=== PATIENT | male | born 1970 | race Caucasian/White ===

== ENCOUNTER → 2017-10-23 | Outpatient (CLI) | payer BC ==
[~2017-10-23] VITALS: Ht 177.8 cm; Wt 127.0 kg
[~2017-10-23] MED LIST: ACYCLOVIR200 MG PO; ADVIL,NUPRIN,M200 MG PO; ASCORBIC ACID500 M3 PO; BENTYL10 MG PO; BUTALB-CAFF-AC1 EACH PO; CIPRO500 MG PO; CITALOPRAM HBR40 MG PO; CLOBETASOL PROP60 GM TP; Cortef PO; DEPO-TESTOS200 MG/ML IJ; DEXAMETHASO4 MG/1 ML IM; FIBER THERAPY0.52 GM PO; FIORICET 50-301 EAC1 PO; FLORINEF ACETA0.1 MG PO; FLUDROCORTISON0.1 M1 PO; GLUCOSAMINE 1,1 EAC1 PO; HYDROCORTISONE5 MG PO; HYOSCYAMINE0.125 M1 SL; IRON325 M1 PO; LANSOPRAZOLE30 MG PO; LEVOTHYROXINE100 MCG PO; LEVOTHYROXINE75 MCG PO; MEN'S MULTI-VI1 EACH PO; METRONIDAZOLE500 MG PO; NAPROXEN500 MG PO; OMEPRAZOLE40 M1 PO; PROAIR HFA8.5 GM IH; PROMETHAZINE HC25 M1 PO; SUPER B COMPL400 MCG PO; TAMIFLU75 MG PO; TESTOSTERO200 MG/12 IM; TYLENOL ARTHRI650 MG PO; VITAMIN D31000 UNIT PO
== END | disposition home or self-care (01) ==
LOC: AMB 12:30
PROC: 0DJ08ZZ Inspection of Upper Intestinal Tract, Via Natural or Artificial Opening Endoscopic (ICD-10-PCS; principal; 2017-10-23)
DX: K31.89 Other diseases of stomach and duodenum (principal); K44.9 Diaphragmatic hernia without obstruction or gangrene; R10.13 Epigastric pain; K21.9 Gastro-esophageal reflux disease without esophagitis; K76.0 Fatty (change of) liver, not elsewhere classified; K58.9 Irritable bowel syndrome, unspecified; D50.9 Iron deficiency anemia, unspecified; G47.33 Obstructive sleep apnea (adult) (pediatric); Z83.3 Family history of diabetes mellitus; Z80.8 Family history of malignant neoplasm of other organs or systems; Z80.0 Family history of malignant neoplasm of digestive organs

== ENCOUNTER → 2017-12-10 | Outpatient (CLI) | payer BC ==
[~2017-12-10] VITALS: Ht 177.8 cm; Wt 124.7 kg
[~2017-12-10] MED LIST changes: +CHANTIX0.5 MG PO
== END | disposition home or self-care (01) ==
LOC: AMB 12-03 08:45
DX: K31.9 Disease of stomach and duodenum, unspecified (principal); J45.909 Unspecified asthma, uncomplicated; G47.33 Obstructive sleep apnea (adult) (pediatric); E27.1 Primary adrenocortical insufficiency; K21.9 Gastro-esophageal reflux disease without esophagitis; Z87.891 Personal history of nicotine dependence
CPT/HCPCS: 88173; 88305; J0330; J3010

== ENCOUNTER 2018-02-27 13:21 | Inpatient (IN) | payer BC ==
[~2018-02-27] VITALS: Ht 177.8 cm; Wt 126.9 kg
[2018-02-27 14:40] LABS: HEMATOCRIT 44.9 % (38.0-50.0); HEMOGLOBIN 16.2 G/DL (12.5-16.6); MCH 30.6 PG (29.0-34.0); MCHC 36.1 G/DL (30.0-36.0); MCV 84.9 FL (86-99); PLATELET COUNT 209 K/uL (156-360); RBC DIS.WIDTH-SD 40.1 % (39-53); RED BLOOD COUNT 5.29 M/uL (4.00-5.50); WHITE BLOOD COUNT 9.2 K/uL (4.1-10.2)
[2018-02-27 14:52] LABS: ALBUMIN 4.4 g/dL (3.2-4.8); CHLORIDE 96 mEq/L (99-109); SODIUM 130 mEq/L (136-147)
[2018-02-27 14:54] LABS: GLUCOSE 166 mg/dL (70-99); TOTAL PROTEIN 7.6 g/dL (6.4-8.3)
[2018-02-27 14:58] LABS: ALKALINE PHOSPHATASE 71 IU/L (3-129); CREATININE 1.3 mg/dL (0.6-1.3); GFR ESTIMATE (CALCULATED) > 59 mL/min/ (58.99-99999)
[2018-02-27 14:59] LABS: UREA NITROGEN (BUN) 15 mg/dL (9-23)
[2018-02-27 15:00] LABS: AST (GOT) 52 IU/L (2-34)
[2018-02-27 15:01] LABS: ALT (GPT) 67 IU/L (3-49)
[2018-02-27 16:10] LABS: APPEARANCE CLEAR ((CLEAR)); BILIRUBIN NEGATIVE; BLOOD NEGATIVE; COLOR YELLOW ((YELLOW)); GLUCOSE (STRIP) NEGATIVE; KETONES NEGATIVE; LEUKOCYTES NEGATIVE; NITRITE NEGATIVE; PROTEIN (STRIP) 30; SPECIFIC GRAVITY 1.008 (1.000-1.030); UCUL ADDED? NO
[2018-02-27] MEDS ORDERED: CHANTIX1 MG PO (19:47)
[2018-02-27] MEDS ORDERED: TYLENOL EXTRA500 MG PO (19:48)
[2018-02-27] MEDS ORDERED: PRILOSEC20 MG PO (19:49)
[2018-02-27] MEDS ORDERED: CORTEF5 M1 PO (19:51)
[2018-02-27] MEDS ORDERED: C-10001000 MG PO (19:53)
[2018-02-27] MEDS ORDERED: GLUCOSAMINE-MS1 EAC3 PO (19:54)
[2018-02-27] MEDS ORDERED: AMOXICILLIN500 MG PO ×2 (19:56→19:57)
[2018-02-27] MEDS ORDERED: NORCO 5/3251 TABLET PO (19:58)
[2018-02-27 22:04] VITALS: BP 136/82
[2018-02-28 03:56] VITALS: BP 126/69
[2018-02-28 06:01] LABS: HEMOGLOBIN 14.5 G/DL (12.5-16.6); MCH 30.5 PG (29.0-34.0); MCHC 35.4 G/DL (30.0-36.0); MCV 86.1 FL (86-99); PLATELET COUNT 217 K/uL (156-360); RBC DIS.WIDTH-SD 40.7 % (39-53); RED BLOOD COUNT 4.76 M/uL (4.00-5.50); WHITE BLOOD COUNT 11.1 K/uL (4.1-10.2)
[2018-02-28 06:27] LABS: CHLORIDE 100 MEQ/L (99-109); GFR ESTIMATE (CALCULATED) > 59 mL/min/ (58.99-99999); POTASSIUM 4.5 MEQ/L (3.7-5.4); SODIUM 132 MEQ/L (136-147); UREA NITROGEN (BUN) 14 mg/dL (9-23)
[2018-02-28 06:28] LABS: GLUCOSE 297 mg/dL (70-99)
[2018-02-28 07:29] VITALS: BP 144/80
[2018-02-28] MEDS ORDERED: AUGMENTIN875 MG PO (11:04)
== END 2018-02-28 11:57 | disposition home or self-care (01) | DRG 644 ==
LOC: EME 13:21 → EDOF 20:17 → 5SOUTH 21:26
PROVIDERS: Emergency Medicine; Hospitalist
DX: E27.2 Addisonian crisis (principal); R65.10 Systemic inflammatory response syndrome (SIRS) of non-infectious origin without acute organ dysfunction; E27.1 Primary adrenocortical insufficiency; K04.7 Periapical abscess without sinus; G47.33 Obstructive sleep apnea (adult) (pediatric); K58.9 Irritable bowel syndrome, unspecified; E06.3 Autoimmune thyroiditis; E03.9 Hypothyroidism, unspecified; K21.9 Gastro-esophageal reflux disease without esophagitis; L40.9 Psoriasis, unspecified; Z87.891 Personal history of nicotine dependence; K76.0 Fatty (change of) liver, not elsewhere classified
CPT/HCPCS: 71046; 74177; 80048; 80053; 81003; 82024 90; 82533 91; 83605; 85027; 87040; 99281; 99285; J1100; J1650; J2543; J7030; J7042; J7050